=== PATIENT | male | born 1950 | race Hispanic/Latino ===

== ENCOUNTER 2023-10-22 06:18 | Day surgery (SDC) | payer OTHER, MEDICARE ==
[~2023-10-22] VITALS: Ht 157.5 cm; Wt 82.6 kg
[2023-10-22] VITALS (11 sets, daily range): BP systolic 120–154; BP diastolic 40–63; PULSE 60–67; RESP 15–19
[2023-10-22] MEDS ORDERED: FERR159T2 PO (07:10)
[2023-10-22] MEDS ORDERED: TELM80TA10 PO (07:10)
[2023-10-22] MEDS ORDERED: ALLO100T PO (07:10)
[2023-10-22] MEDS ORDERED: GABA-529 PO (07:10)
[2023-10-22] MEDS ORDERED: FOLI0.8T22 PO (07:10)
[2023-10-22] MEDS ORDERED: LEVE500T98 PO (07:10)
[2023-10-22] MEDS ORDERED: LEVE250T2 PO (07:10)
[2023-10-22] MEDS ORDERED: HYDR-3421 PO (07:10)
[2023-10-22] MEDS ORDERED: ATOR40TA69 PO (07:10)
[2023-10-22] MEDS ORDERED: CARV6.25 PO (07:10)
[2023-10-22] MEDS ORDERED: AMLO-257 PO (07:10)
[2023-10-22] MEDS ORDERED: CITA-107 PO (07:10)
[2023-10-22] MEDS: 0.9% NACL 500ML IV.SOLN 500 ML IV ONE (07:46)
[2023-10-22] MEDS ORDERED: PROPOFOL 10 MG/ML 20ML VIAL IV ONE ×2 (08:45)
== END 2023-10-22 10:00 | disposition home or self-care (01) ==
LOC: ENDO 06:18 → DAH 06:18 → ENDO 10:00
PROVIDERS: ATTEND Internal Medicine Gastroenterology
DX: K92.1 Melena (principal); K63.5 Polyp of colon; K63.4 Enteroptosis; K29.50 Unspecified chronic gastritis without bleeding; K44.9 Diaphragmatic hernia without obstruction or gangrene; R19.4 Change in bowel habit; K52.9 Noninfective gastroenteritis and colitis, unspecified; I12.0 Hypertensive chronic kidney disease with stage 5 chronic kidney disease or end stage renal disease; E11.22 Type 2 diabetes mellitus with diabetic chronic kidney disease; N18.6 End stage renal disease; D50.9 Iron deficiency anemia, unspecified; D64.9 Anemia, unspecified; E78.5 Hyperlipidemia, unspecified; K76.0 Fatty (change of) liver, not elsewhere classified; D69.6 Thrombocytopenia, unspecified; F41.9 Anxiety disorder, unspecified; K80.20 Calculus of gallbladder without cholecystitis without obstruction; Z99.2 Dependence on renal dialysis; Z86.73 Personal history of transient ischemic attack (TIA), and cerebral infarction without residual deficits; Z82.49 Family history of ischemic heart disease and other diseases of the circulatory system; Z83.3 Family history of diabetes mellitus; Z79.899 Other long term (current) drug therapy
CPT/HCPCS: 45380; 43239; 82948 ×2; J7040; J2704 ×2; A4620; A4215 ×2; A4223; A4222; A4221; A4663; A4606; J3490